=== PATIENT | female | born 1995 | race Two or more races ===

== ENCOUNTER 2019-01-16 19:01 | Emergency (ER) | payer BC, OTHER ==
[~2019-01-16] VITALS: Ht 182.9 cm; Wt 56.7 kg
[2019-01-16 19:42] VITALS: BP 122/64
== END 2019-01-16 20:02 | disposition home or self-care (01) ==
LOC: ER 19:06
DX: S62.324A Displaced fracture of shaft of fourth metacarpal bone, right hand, initial encounter for closed fracture (principal); W22.8XXA Striking against or struck by other objects, initial encounter; Y93.89 Activity, other specified; Y99.8 Other external cause status; Y92.89 Other specified places as the place of occurrence of the external cause
CPT/HCPCS: 29125

== ENCOUNTER 2025-02-15 12:49 | Observation (INO) | payer MEDICAID ==
[2025-02-15 13:42] LABS: Urine Bacteria None Seen /hpf (None Seen)
[2025-02-15 13:49] LABS: Urine Blood Negative /uL (Negative); Urine Clarity Turbid (Clear); Urine Color Colorless (Yellow); Urine Protein, UAD Negative (Negative); Urine Specific Gravity 1.013 (1.001-1.035); Urine Squamous Epithelial Cell MOD /hpf (<5); Urine Urobilinogen Normal (Negative); Urine WBC 6 /HPF (0-5); Urine pH 6.5 (5.0-9.0)
[2025-02-15 13:52] LABS: Protein, Urine 9.9 mg/dL (1-14)
[2025-02-15 13:55] LABS: Urine Protein/Creatinine Ratio 0.15
--- NOTE | 2025-02-15 13:56 | DVH ---
CLINICAL HISTORY: -induced hypertension. COMPARISON: None TECHNIQUE: biophysical profile was performed. Transabdominal sonographic images of the fetus we re obtained. FINDINGS: The fetus is in cephalic position. heart rate measures 140 BPM. Amniotic fluid index measures 12.2 cm. The placenta is fundal in position. BPP profile is an overall score of 8/8, with 2/2 points for breathing, with at least one episode of breathing over a 30 second duration during a 30 minute observation, 2/2 points for m ovements, with 3 or more discrete body or limb movements, 2/2 points for tone, with one or more episodes of extremity extension with return to flexion, or opening and closing of hand, and 2/ 2 points for amniotic fluid, with at least 1 pocket of amniotic fluid that measures 2 cm in 2 perpend icular planes. IMPRESSION: BPP score of 8/8.
[2025-02-15 14:11] LABS: Basophils # (auto) 0 10 ^3/uL (0-0.2); Basophils % (auto) 0.3 % (0.0-2.0); Eosinophils # (auto) 0.1 10 ^3/uL (0-0.8); Hematocrit 36.2 % (36.0-46.0); Hemoglobin 12.4 g/dL (12.2-16.2); Lymphocytes # (auto) 0.9 10 ^3/uL (0.4-5.4); Lymphocytes % (auto) 15.2 % (10.0-50.0); Mean Corpuscular Hemoglobin 32.6 pg (28.0-32.0); Mean Corpuscular Hgb Conc. 34.2 g/dL (32.0-36.0); Mean Corpuscular Volume 95.3 fL (80.0-100.0); Monocytes # (auto) 0.4 10 ^3/uL (0-1.3); Monocytes % (auto) 7.7 % (0.0-12.0); Neutrophils # (auto) 4.4 10 ^3/uL (1.6-8.6); Neutrophils % (auto) 75.8 % (37.0-80.0); Nucleated Red Blood Cells % 0.1 %; Platelet Count (auto) 199 10^3/uL (140-450); Red Cell Distribution Width 12.8 % (11.8-14.3); White Blood Cell 5.8 10^3/uL (4.4-10.8)
[2025-02-15 14:29] LABS: INR 0.9 (0.9-1.15); Partial Thromboplastin Time 26.3 SEC (24.5-34.5); Prothrombin Time 9.6 sec (9.3-11.8)
[2025-02-15 14:33] LABS: Alanine Aminotransferase 13 U/L (7-40); Anion Gap 8 (5-15); Aspartate Aminotransferase 16 U/L (13-40); BUN/Creatinine Ratio 14.7 (10.0-20.0); Blood Urea Nitrogen 10 mg/dL (9-23); Calcium 9.4 mg/dL (8.7-10.4); Carbon Dioxide 23 mmol/L (20-31); Glucose 97 mg/dL (74-106); Potassium 4.1 mmol/L (3.5-5.1); Sodium 138 mmol/L (136-145); Uric Acid 5.7 mg/dL (3.1-7.8)
[2025-02-15 14:34] LABS: Albumin 3.3 g/dL (3.2-4.8); Alkaline Phosphatase 122 U/L (46-116); Bilirubin, Total 0.3 mg/dL (0.2-1.0); Chloride 107 mmol/L (98-107); Total Protein 5.6 g/dL (5.7-8.2)
--- NOTE | 2025-02-15 23:18 | DVHDS2 ---
Discharge Summary Date of Admission Feb 15, 2025 at 12:49 Date of Discharge: Feb 15, 2025 Admitting Diagnosis Thirty-seven week hypertension Labs/Diagnostic Data: Laboratory Results Test 02/15/25 13:57 02/15/25 13:19 White Blood Count 5.8 10^3/uL (4.4-10.8) Red Blood Count 3.80 10^6/uL (4.0-5.20) Hemoglobin 12.4 g/dL (12.2-16.2) Hematocrit 36.2 % (36.0-46.0) Mean Corpuscular Volume 95.3 fL (80.0-100.0) Mean Corpuscular Hemoglobin 32.6 pg (28.0-32.0) Mean Corpuscular Hemoglobin Concent 34.2 g/dL (32.0-36.0) Red Cell Distribution Width 12.8 % (11.8-14.3) Platelet Count 199 10^3/uL (140-450) Mean Platelet Volume 7.3 fL (6.9-10.8) Neutrophils (%) (Auto) 75.8 % (37.0-80.0) Lymphocytes (%) (Auto) 15.2 % (10.0-50.0) Monocytes (%) (Auto) 7.7 % (0.0-12.0) Eosinophils (%) (Auto) 1.0 % (0.0-7.0) Basophils (%) (Auto) 0.3 % (0.0-2.0) Neutrophils # (Auto) 4.4 10 ^3/uL (1.6-8.6) Lymphocytes # (Auto) 0.9 10 ^3/uL (0.4-5.4) Monocytes # (Auto) 0.4 10 ^3/uL (0-1.3) Eosinophils # (Auto) 0.1 10 ^3/uL (0-0.8) Basophils # (Auto) 0 10 ^3/uL (0-0.2) Nucleated Red Blood Cells 0.1 % Prothrombin Time 9.6 sec (9.3-11.8) Prothrombin Time INR 0.90 (0.9-1.15) Activated Partial Thromboplast Time 26.3 SEC (24.5-34.5) Sodium Level 138 mmol/L (136-145) Potassium Level 4.1 mmol/L (3.5-5.1) Chloride Level 107 mmol/L (98-107) Carbon Dioxide Level 23 mmol/L (20-31) Anion Gap 8 (5-15) Blood Urea Nitrogen 10 mg/dL (9-23) Creatinine 0.68 mg/dL (0.550-1.02) Glomerular Filtration Rate Calc 121 mL/min (>90) BUN/Creatinine Ratio 14.7 (10.0-20.0) Serum Glucose 97 mg/dL (74-106) Uric Acid 5.7 mg/dL (3.1-7.8) Calcium Level 9.4 mg/dL (8.7-10.4) Total Bilirubin 0.3 mg/dL (0.2-1.0) Aspartate Amino Transferase (AST) 16 U/L (13-40) Alanine Aminotransferase (ALT) 13 U/L (7-40) Alkaline Phosphatase 122 U/L (46-116) Total Protein 5.6 g/dL (5.7-8.2) Albumin 3.3 g/dL (3.2-4.8) Urine Color Colorless (Yellow) Urine Clarity Turbid (Clear) Urine pH 6.5 (5.0-9.0) Urine Specific [place] 1.013 (1.001-1.035) Urine Protein Negative (Negative) Urine Ketones Negative (Negative) Urine Blood Negative /uL (Negative) Urine Nitrite Negative (Negative) Urine Bilirubin Negative (Negative) Urine Urobilinogen Normal mg/dL (Negative) Urine Leukocyte Esterase 2+ /uL (Negative) Urine RBC <1 /hpf (0 - 4) Urine Microscopic WBC 6 /HPF (0-5) Urine Squamous Epithelial Cells Mod /hpf (<5) Urine Bacteria None seen /hpf (None Seen) Urine Creatinine 64.00 mg/dL (30.0-125.0) Urine Protein/Creatinine Ratio 0.15 Urine Glucose Normal mg/dL (Normal) Urine Total Protein 9.9 mg/dL (1-14) Other Laboratory Tests 02/15/25 13:57 Brief Hx & Hospital Course: NST ultrasound blood pressure check Consults/Reason for consult NST ultrasound BP monitoring Condition at Discharge: Good Final Diagnosis/Problems List 37 week blood pressure checks Discharge Disposition: Home Discharge Instruct/Medications Diet: Regular Activity: No Restrictions, As Tolerated Activity comment: Kick counts labor Discharge Statement: "Patient was advised to return to the ER or call 911 if any headaches, dizziness, shortness of breath, chest pain, abdominal pain, bleeding, fevers, or worsening of medical condition. Patient was counseled about treatment plan, medications, possible side effects, patientverbalized understanding. All questions were answered to the best of my ability. This discharge took greater then 30 minutes in planning, reviewing documentation, counseling the patient, and discussing with other team members." ASSESSMENT ASSESSMENT Assessment Visit Coding OBGYN Date of Service: Feb 15, 2025 Billing Provider: JOSE AGUILAR DO AUTOMATION MECHANIC Common Visit Codes: 79507-OUH/OBS SAME DATE (LOW), 82347-ABG/OBS SAME DATE (MOD), 64343-KRF/OBS SAME DATE (HIGH) AUTOMATION MECHANIC Procedure Codes: 14726-45- NON-STRESS TEST JOSE AGUILAR DO Feb 15, 2025 23:18
== END 2025-02-15 14:59 | disposition home or self-care (01) ==
LOC: LDRP 12:49
PROVIDERS: ADMIT Obstetrics & Gynecology; ATTEND Obstetrics & Gynecology
DX: O13.3 Gestational [pregnancy-induced] hypertension without significant proteinuria, third trimester (principal); Z98.890 Other specified postprocedural states; Z79.899 Other long term (current) drug therapy; Z3A.37 37 weeks gestation of pregnancy
CPT/HCPCS: 36415; 59025; 76819; 80053; 81001; 81002; 82570; 84156; 84550; 85025; 85610; 85730; C1813; G0378

== ENCOUNTER 2025-02-25 14:54 | Inpatient (IN) | payer MEDICAID ==
[~2025-02-25] VITALS: Ht 182.9 cm; Wt 97.5 kg
--- NOTE | 2025-02-25 16:27 | DVH ---
BIOPHYSICAL PROFILE HISTORY: Term TECHNIQUE: Multiple transabdominal real-time grayscale sonographic images through the gravid uterus of the fetus with duplex Doppler color flow and M-mode spectral analysis FINDINGS: BIOPHYSICAL PROFILE: breathing score: 2 movement score: 2 tone score: 2 Quantitative MICHAEL score: 2 (MICHAEL: 10.3 Cm.) Total score: 8/8 The cervix obscured by head Single live fetus in cephalic presentation. heart rate 161 beats per minute. Fundal Grade 2 placenta without previa or abruption Single live fetus at 40 weeks 0 days Biophysical profile score 8/8 corresponding to an KEM of 02/25/2025. IMPRESSION: 1. Biophysical profile score: 8/8
[2025-02-25] MEDS ORDERED: PREN-96 PO (16:39)
[2025-02-25] MEDS ORDERED: LIDOCAINE 2%HCL (LOCAL ANESTH.) INJ 20ML MDV IJ PRN (17:30)
[2025-02-25] MEDS: LACTATED RINGER'S 1,000 ML IV SCH (17:33)
[2025-02-25 18:15] LABS: Basophils # (auto) 0 10 ^3/uL (0-0.2); Basophils % (auto) 0.2 % (0.0-2.0); Eosinophils # (auto) 0.1 10 ^3/uL (0-0.8); Eosinophils % (auto) 1.7 % (0.0-7.0); Hematocrit 35.8 % (36.0-46.0); Hemoglobin 12.3 g/dL (12.2-16.2); Lymphocytes # (auto) 1.3 10 ^3/uL (0.4-5.4); Lymphocytes % (auto) 21.5 % (10.0-50.0); Mean Corpuscular Hemoglobin 32.4 pg (28.0-32.0); Mean Corpuscular Hgb Conc. 34.3 g/dL (32.0-36.0); Mean Corpuscular Volume 94.5 fL (80.0-100.0); Monocytes # (auto) 0.5 10 ^3/uL (0-1.3); Monocytes % (auto) 8.7 % (0.0-12.0); Neutrophils # (auto) 4.2 10 ^3/uL (1.6-8.6); Neutrophils % (auto) 67.9 % (37.0-80.0); Platelet Count (auto) 206 10^3/uL (140-450); Red Blood Cells 3.78 10^6/uL (4.0-5.20); Red Cell Distribution Width 13.2 % (11.8-14.3); White Blood Cell 6.2 10^3/uL (4.4-10.8)
[2025-02-25 18:33] LABS: Alanine Aminotransferase 16 U/L (7-40); Albumin 3.7 g/dL (3.2-4.8); Anion Gap 9 (5-15); Aspartate Aminotransferase 18 U/L (13-40); BUN/Creatinine Ratio 16.7 (10.0-20.0); Blood Urea Nitrogen 12 mg/dL (9-23); Carbon Dioxide 21 mmol/L (20-31); Potassium 3.9 mmol/L (3.5-5.1); Sodium 138 mmol/L (136-145); Total Protein 6.2 g/dL (5.7-8.2)
[2025-02-25] MEDS: DERMOPLAST 60ML BOTTLE TOP PRN (18:33)
[2025-02-25] MEDS: WITCH HAZEL-GLYCERIN PAD TOP PRN (18:33)
[2025-02-25] MEDS: PHISODERM TOP SOLN 240ML BTL TOP PRN (18:33)
[2025-02-25 18:40] LABS: Urine Bacteria FEW /hpf (None Seen); Urine Blood Negative /uL (Negative); Urine Clarity Turbid (Clear); Urine Color Colorless (Yellow); Urine Protein, UAD Negative (Negative); Urine Specific Gravity 1.002 (1.001-1.035); Urine Squamous Epithelial Cell FEW /hpf (<5); Urine Urobilinogen Normal (Negative); Urine WBC 2 /HPF (0-5); Urine pH 6.5 (5.0-9.0)
[2025-02-25 18:42] LABS: Alkaline Phosphatase 148 U/L (46-116); Bilirubin, Total 0.3 mg/dL (0.2-1.0); Calcium 8.6 mg/dL (8.7-10.4); Chloride 108 mmol/L (98-107); Glucose 66 mg/dL (74-106)
[2025-02-25] MEDS: miSOPROStol 50 MCG per PRE-CUT 1/2 TAB PO PRN (18:43)
[2025-02-25 18:47] LABS: Creatinine, Urine 12.54 mg/dL (30.0-125.0); Protein, Urine < 6.0 mg/dL (1-14); Urine Protein/Creatinine Ratio 0.48
[2025-02-25 18:48] LABS: Amphetamine Screen, Urine Neg (NEGATIVE); Barbiturate Scree,Urine Neg (NEGATIVE); Benzodiazephine Screen, Urine Neg (NEGATIVE); Cannabinoid Screen, Urine Neg (NEGATIVE); Cocaine Screen, Urine Neg (NEGATIVE); Opiate Scree,Urine Neg (NEGATIVE); Phencyclidine Screen, Urine Neg (NEGATIVE)
[2025-02-25 18:55] LABS: INR 0.88 (0.9-1.15); Partial Thromboplastin Time 27.8 SEC (24.5-34.5); Prothrombin Time 9.4 sec (9.3-11.8)
[2025-02-25] MEDS ORDERED: hydrALAZINE HCL 20 MG/ML VL IV PRN (19:45)
[2025-02-25] MEDS ORDERED: ONDANSETRON HCL 4 MG/2 ML VIAL IV PRN (19:45)
--- NOTE | 2025-02-25 20:18 | DVHHP2 ---
OB CC & HPI Date Date of Admission: February 25, 2025 Patient Identification: : 2 Para: 0 EDC: February 25, 2025 EGA: 40w 0d Chief Complaints: Reason for admission: induction of labor, other (Presented to unit for surveillance, BP elevated and lab tests confirmed Pre-eclampsia hence the option plan to admit and induce labor discussed with patient.) Indication for induction: other (Pre-eclampsia) Other reason for admission: Pt presented to unit for surveillance, BP elevated and lab tests confirmed Pre-eclampsia hence the option plan to admit and induce labor discussed with patient. History of Present Complaints Presented to unit for surveillance, BP elevated. Patient denies any BOSS, vision changes or epigastric pain. Reports normal movements. Lab tests c onfirmed Pre-eclampsia hence the option plan to admit and induce labor discussed with patient. Past Medical History Cardiac: No pertinent Hx Pulmonary: No pertinent Hx Central Nervous System: No pertinent Hx GI: No pertinent Hx Hemotology/Oncology: No pertinent Hx Hepatobiliary: No pertinent Hx Psychiatric: No pertinent Hx Musculoskeletal: No pertinent Hx Rheumotologic: No pertinent Hx Infectious Disease: No peritnent Hx ENT: No pertinent Hx Renal/: No pertinent Hx Endocrine: No pertinent Hx Dermatology: No pertinent Hx Past Surgical History: Other (Orthopedic surgery on right hand due to fracture of the bone in 2018) OB History OB History Care: Good Care Ultrasounds: Normal mid trimester US Obstetrical Complications: Pre-eclampsia Allergies: Coded Allergies: NO KNOWN ALLERGIES (Unverified , 01/16/19) Home Meds Reported Medications Vit W/ Ferrous Fumara ( One Daily) Daily Tab, 1 TAB PO DAILY, #90 TAB 3 Refills 02/25/25 Current Medications Current Medications Medications (Trade) Dose Ordered Sig/Eve Route PRN Reason Start Time Stop Time Status Last Admin Lactated Ringer's 1,000 ml @ 125 mls/hr Q8H IV 02/25/25 17:30 02/25/25 17:33 Nalbuphine HCl (Nubain) 10 mg Q4HP PRN IV MODERATE PAIN (4-6 PAIN SCALE) 02/25/25 17:30 Witch Carol (Tucks) 1 pad PRN PRN TOP PERINEAL AREA DISCOMFORT 02/25/25 17:30 02/25/25 18:33 Sodium Lauryl Sulfate (Phisoderm) 240 ml PRN PRN TOP PERINEAL AREA DISCOMFORT 02/25/25 17:30 02/25/25 18:33 Benzocaine (Dermoplast) 1 applic PRN PRN TOP PERINEAL AREA DISCOMFORT 02/25/25 17:30 02/25/25 18:33 Misoprostol (Cytotec) 50 mcg Q4HPRN PRN PO CERVICAL RIPENING 02/25/25 17:30 02/25/25 18:43 Lidocaine HCl (Xylocaine) 40 ml ONCE PRN IJ PERINEAL AREA DISCOMFORT 02/25/25 17:30 Ondansetron HCl (Zofran) 4 mg Q6HPRN PRN IV NAUSEA / VOMITING 02/25/25 19:45 Hydralazine HCl (Apresoline Injection) 5 mg Q20MP PRN IV SBP>160 or DBP>95 02/25/25 19:45 Family & Social History Family/Social History Past Family/Social History: No pertinent family history Blood Type: B+ Rubella: immune RPR/VDRL: Negative GBS Status: Negative HBsAG: Negative Review of Systems Constitutional: No symptom reported Ears, Nose, & Throat: No symptom reported Eyes: No symptom reported Pulmonary/Respiratory: No symptom reported Cardiovascular: No symptom reported Gastrointestinal: No symptom reported Genitourinary: No symptom reported Musculoskeletal: No symptom reported Skin: No symptom reported Psychiatric: No symptom reported Endocrine: No symptom reported Hemotologic/Lymphatic: No symptom reported OB Admission Exam Physical Exam HEENT: Nasal Mucosa Normal, Eyes non-injected, Oropharynx Normal, Moist Membranes Heart: Rhythm Normal Lungs: Clear, Equal Abdomen: Gravid (and non-tender to palpation) Extremities: Normal Reflexes: Normal Cervical Dilatation: Fingertip Effacement: 25% Station: -3 Heart Rate: 130's Accelerations: Accelerations Present Decelerations: No Decelerations Halfway Variability: Average (6-25) Intensity: Mild OB Plan Plan Admitting Diagnosis: IUP at 40w Pre eclampsia Induction for Pre eclampsia Plan: Induction Induction Methd: Misoprostol protocol Other Plan: ASSESSMENT: 29yo G2, 0010, IUP at 40weeks Pre-eclampsia Induction of Labor FHR baseline 135bpm, mod variability , Accelerations present, no deceleration; Category 1 FHR tracing Contractions q mins x secs Irregular PLAN: P Plan of care discussed with Patient and partner / family IOL process, cervical ripening with medication, cervical ripening balloon, oxytocin etc including the risks, benefits and options discussed with the patient & partner. Informed consent obtained. Risk of pain, bleeding, infection, discussed with the patient and partner Consent for possible blood transfusion obtained. All questions answered. Admit to Place for IOL Routine L&D admission orders Misoprostol per protocol EFM per policy & protocol Intrauterine resuscitation PRN Labor analgesia PRN Encourage frequent position change to facilitate labor & descent Supportive Care Anticipate Visit Coding OBGYN Date of Service: February 25, 2025 Billing Provider: THEODORA MENARD CNM SWATCH CUTTER Common Visit Codes: [id number] INP/OBS CARE (HIGH) SWATCH CUTTER Procedure Codes: 94721-13- NON-STRESS TEST THEODORA MENARD CNM February 25, 2025 20:18
[2025-02-26] VITALS (12 sets, daily range): BP systolic 126–156; BP diastolic 75–95; PULSE 91–107; RESP 17–18; TEMP 98–100; O2SAT 96–98
--- NOTE | 2025-02-26 03:25 | DVHPN2 ---
OB Labor Progress Note Date and Time Seen Date Seen: February 26, 2025 Time Seen: 02:36 Subjective Patient reports: No new complaints Objective Vital Signs VSS Monitoring Method Monitoring Method: External Heart Rate Heart Rate Baseline: 125 Heart Rate Variability: Moderate Presence of FHR Accelerations: Yes Presence of FHR Decelerations: No Changes in Trends of Patterns: No Are all 5 Components of the FH: Yes Contractions Contractions Frequency: Other (Q3-5min) Duration of Contraction: 60 Contractions Intensity: Mild Contractions Resting Tone: Relaxed Membranes Membranes: Intact Vaginal Exam Vag Exam Deferred: No Vaginal Exam Dilation: 1 Vaginal Exam Effacement: 50 Vaginal Exam Station: -3 Vaginal Exam Presentation: VTX Vaginal Exam Show: Small Medications Medications - Pitocin: No Medication - Epidural: No Medication - Other Misoprostol dose #2 given at 2245 Lab Results Lab Results Vital Signs Date Time Temp Pulse Resp B/P (MAP) Pulse Ox O2 Delivery O2 Flow Rate FiO2 02/26/25 13:24 18 Room Air 02/26/25 05:31 69 129/73 Current Medications Medications (Trade) Dose Ordered Sig/Eve Start Time Stop Time Status Last Admin Dose Admin Lactated Ringer's 1,000 ml @ 125 mls/hr Q8H 02/25/25 17:30 02/26/25 07:00 125 MLS/HR Nalbuphine HCl (Nubain) 10 mg Q4HP PRN 02/25/25 17:30 02/26/25 04:31 10 MG Witch Carol (Tucks) 1 pad PRN PRN 02/25/25 17:30 02/25/25 18:33 1 PAD Sodium Lauryl Sulfate (Phisoderm) 240 ml PRN PRN 02/25/25 17:30 02/25/25 18:33 240 ML Benzocaine (Dermoplast) 1 applic PRN PRN 02/25/25 17:30 02/25/25 18:33 1 APPLIC Misoprostol (Cytotec) 50 mcg Q4HPRN PRN 02/25/25 17:30 02/26/25 04:40 50 MCG Lidocaine HCl (Xylocaine) 40 ml ONCE PRN 02/25/25 17:30 Oxytocin 500 ml @ 999 mls/hr Q31M ONCE 02/25/25 17:30 02/25/25 18:00 DC Oxytocin 500 ml @ 125 mls/hr Q4H ONCE 02/25/25 18:00 02/25/25 21:59 DC Ondansetron HCl (Zofran) 4 mg Q6HPRN PRN 02/25/25 19:45 Hydralazine HCl (Apresoline Injection) 5 mg Q20MP PRN 02/25/25 19:45 Terbutaline Sulfate (Brethine Inj) 0.25 mg ONCE PRN 02/26/25 03:30 Naloxone HCl (Narcan) 0.2 mg PRN ONCE 02/26/25 06:45 02/26/25 06:46 DC Ephedrine Sulfate (ePHEDrine SULFATE) 10 mg PRN ONCE 02/26/25 06:45 02/26/25 06:46 DC Magnesium Sulfate 1,000 ml @ 50 mls/hr Q20H 02/26/25 08:45 02/26/25 12:04 50 MLS/HR Magnesium Sulfate 100 ml @ 300 mls/hr ONCE ONCE 02/26/25 08:45 02/26/25 09:04 DC 02/26/25 12:04 300 MLS/HR Oxytocin 1,000 ml @ 6 ml/hr Q24H 02/26/25 10:00 02/26/25 13:02 6 ML/HR Cefazolin Sodium 50 ml @ 100 mls/hr Q8HR 02/26/25 12:30 02/26/25 14:19 DC 02/26/25 12:31 100 MLS/HR Lactated Ringer's 200 ml @ 0 mls/hr Q0M ONCE 02/26/25 12:15 02/26/25 12:23 DC 02/26/25 12:28 200 MLS/HR Sodium Chloride 1,000 ml @ 125 mls/hr Q8H 02/26/25 12:15 02/26/25 12:27 125 MLS/HR Lorazepam (Ativan Inj) 4 mg ONCE PRN 02/26/25 14:15 Cefazolin Sodium 50 ml @ 100 mls/hr Q8H 02/26/25 22:30 Laboratory Tests Test 02/25/25 20:02 02/25/25 17:52 02/25/25 15:54 Range/Units POC Glucose 102 70-106 mg/dl White Blood Count 6.2 4.4-10.8 10^3/uL Red Blood Count 3.78 L 4.0-5.20 10^6/uL Hemoglobin 12.3 12.2-16.2 g/dL Hematocrit 35.8 L 36.0-46.0 % Mean Corpuscular Volume 94.5 80.0-100.0 fL Mean Corpuscular Hemoglobin 32.4 H 28.0-32.0 pg Mean Corpuscular Hemoglobin Concent 34.3 32.0-36.0 g/dL Red Cell Distribution Width 13.2 11.8-14.3 % Platelet Count 206 140-450 10^3/uL Mean Platelet Volume 7.7 6.9-10.8 fL Neutrophils (%) (Auto) 67.9 37.0-80.0 % Lymphocytes (%) (Auto) 21.5 10.0-50.0 % Monocytes (%) (Auto) 8.7 0.0-12.0 % Eosinophils (%) (Auto) 1.7 0.0-7.0 % Basophils (%) (Auto) 0.2 0.0-2.0 % Neutrophils # (Auto) 4.2 1.6-8.6 10 ^3/uL Lymphocytes # (Auto) 1.3 0.4-5.4 10 ^3/uL Monocytes # (Auto) 0.5 0-1.3 10 ^3/uL Eosinophils # (Auto) 0.1 0-0.8 10 ^3/uL Basophils # (Auto) 0 0-0.2 10 ^3/uL Nucleated Red Blood Cells 0.0 % Prothrombin Time 9.4 9.3-11.8 sec Prothrombin Time INR 0.88 L 0.9-1.15 Activated Partial Thromboplast Time 27.8 24.5-34.5 SEC Sodium Level 138 136-145 mmol/L Potassium Level 3.9 3.5-5.1 mmol/L Chloride Level 108 H 98-107 mmol/L Carbon Dioxide Level 21 20-31 mmol/L Anion Gap 9 5-15 Blood Urea Nitrogen 12 9-23 mg/dL Creatinine 0.72 0.550-1.02 mg/dL Glomerular Filtration Rate Calc 116 >90 mL/min BUN/Creatinine Ratio 16.7 10.0-20.0 Serum Glucose 66 L 74-106 mg/dL Uric Acid 6.0 3.1-7.8 mg/dL Calcium Level 8.6 L 8.7-10.4 mg/dL Total Bilirubin 0.3 0.2-1.0 mg/dL Aspartate Amino Transferase (AST) 18 13-40 U/L Alanine Aminotransferase (ALT) 16 7-40 U/L Alkaline Phosphatase 148 H 46-116 U/L Total Protein 6.2 5.7-8.2 g/dL Albumin 3.7 3.2-4.8 g/dL Treponema pallidum Antibody Non-reactive Negative Hepatitis C Antibody Negative Negative Urine Color Colorless Yellow Urine Clarity Turbid H Clear Urine pH 6.5 5.0-9.0 Urine Specific [place] 1.002 1.001-1.035 Urine Protein Negative Negative Urine Ketones Negative Negative Urine Blood Negative Negative /uL Urine Nitrite Negative Negative Urine Bilirubin Negative Negative Urine Urobilinogen Normal Negative mg/dL Urine Leukocyte Esterase 1+ Negative /uL Urine RBC 2 0 - 4 /hpf Urine Microscopic WBC 2 0-5 /HPF Urine Squamous Epithelial Cells Few <5 /hpf Urine Bacteria Few H None Seen /hpf Urine Creatinine 12.54 L 30.0-125.0 mg/dL Urine Protein/Creatinine Ratio 0.48 Urine Glucose Normal Normal mg/dL Urine Total Protein < 6.0 1-14 mg/dL Urine Opiates Screen Neg NEGATIVE Urine Fentanyl Screen Neg NEGATIVE Urine Barbiturates Screen Neg NEGATIVE Urine Phencyclidine Screen Neg NEGATIVE Urine Amphetamines Screen Neg NEGATIVE Urine Benzodiazepines Screen Neg NEGATIVE Urine Cocaine Screen Neg NEGATIVE Urine Cannabinoids Screen Neg NEGATIVE Assessment Assessment IUP at 40w 2d Pre-eclampsia IOL Category 1 FHR tracing Plan Plan Cervical Ripening balloon (Abdalla) inserted; balloon inflated with 60mL of fluid. Continue Misoprostol per policy EFM per policy Intrauterine resuscitation PRN Labor analgesia PRN Frequent position change to facilitate lanor Anticipate (Co-managing with Dr. Choi) Plan discussed with: Patient Visit Coding OBGYN Date of Service: February 26, 2025 Billing Provider: THEODORA MENARD CNM SANDFILL OPERATOR Common Visit Codes: [id number] INP/OBS CARE(HIGH) SANDFILL OPERATOR Procedure Codes: 26811-24- NON-STRESS TEST THEODORA MENARD CNM February 26, 2025 03:25
[2025-02-26] MEDS ORDERED: TERBUTALINE SULFATE 1 MG/ML 1ML VIAL SC PRN (03:30)
[2025-02-26] MEDS: NALBUPHINE HCL 10 MG/1ml INJECTION IV PRN (04:31)
[2025-02-26] MEDS: ePHEDrine SULFATE 50 MG/ML AMP IV ONE (06:45)
[2025-02-26] MEDS: ROPIVACAINE HCL 200 ML ONE (07:02)
[2025-02-26] MEDS: NALOXONE HCL 0.4 MG/ML VIAL IV ONE (07:04)
--- NOTE | 2025-02-26 07:16 | DVHPN2 ---
Chief Complaints Patient reports: No new complaints Nursing reports: No new complaints Objective Vitals Vital Signs Date Time Temp Pulse Resp B/P (MAP) Pulse Ox O2 Delivery O2 Flow Rate FiO2 02/26/25 05:31 69 16 129/73 Medications Current Medications Medications (Trade) Dose Ordered Sig/Eve Route PRN Reason Start Time Stop Time Status Last Admin Benzocaine (Dermoplast) 1 applic PRN PRN TOP PERINEAL AREA DISCOMFORT 02/25/25 17:30 02/25/25 18:33 Hydralazine HCl (Apresoline Injection) 5 mg Q20MP PRN IV SBP>160 or DBP>95 02/25/25 19:45 Lactated Ringer's 1,000 ml @ 125 mls/hr Q8H IV 02/25/25 17:30 02/26/25 07:00 Lidocaine HCl (Xylocaine) 40 ml ONCE PRN IJ PERINEAL AREA DISCOMFORT 02/25/25 17:30 Misoprostol (Cytotec) 50 mcg Q4HPRN PRN PO CERVICAL RIPENING 02/25/25 17:30 02/26/25 04:40 Nalbuphine HCl (Nubain) 10 mg Q4HP PRN IV MODERATE PAIN (4-6 PAIN SCALE) 02/25/25 17:30 02/26/25 04:31 Ondansetron HCl (Zofran) 4 mg Q6HPRN PRN IV NAUSEA / VOMITING 02/25/25 19:45 Sodium Lauryl Sulfate (Phisoderm) 240 ml PRN PRN TOP PERINEAL AREA DISCOMFORT 02/25/25 17:30 02/25/25 18:33 Terbutaline Sulfate (Brethine Inj) 0.25 mg ONCE PRN SC Uterine tachysystole 02/26/25 03:30 Witch Carol (Tucks) 1 pad PRN PRN TOP PERINEAL AREA DISCOMFORT 02/25/25 17:30 02/25/25 18:33 General: Normal Lungs: Normal Cardiovascular: Normal Abdominal: Soft Extremities: Normal Studies Laboratory Tests 02/25/25 17:52 Test 02/25/25 17:52 Range/Units Serum Glucose 66 L 74-106 mg/dL Ass/Plan Assessment induction of labor for pih Plan rec epidural supportive care Visit Coding OBGYN Date of Service: February 26, 2025 Billing Provider: BETY ROBINS DO MENTAL HEALTH TECH Common Visit Codes: [id number] INP/OBS CARE(HIGH), 96585-VKB/OBS DISCH DAY <30MIN MENTAL HEALTH TECH Procedure Codes: 69076-19- NON-STRESS TEST BETY ROBINS DO February 26, 2025 07:16
--- NOTE | 2025-02-26 08:22 | DVHPN2 ---
Chief Complaints Patient reports: No new complaints Nursing reports: No new complaints Objective Vitals Vital Signs Date Time Temp Pulse Resp B/P (MAP) Pulse Ox O2 Delivery O2 Flow Rate FiO2 02/26/25 05:31 69 16 129/73 Medications Current Medications Medications (Trade) Dose Ordered Sig/Eve Route PRN Reason Start Time Stop Time Status Last Admin Benzocaine (Dermoplast) 1 applic PRN PRN TOP PERINEAL AREA DISCOMFORT 02/25/25 17:30 02/25/25 18:33 Hydralazine HCl (Apresoline Injection) 5 mg Q20MP PRN IV SBP>160 or DBP>95 02/25/25 19:45 Lactated Ringer's 1,000 ml @ 125 mls/hr Q8H IV 02/25/25 17:30 02/26/25 07:00 Lidocaine HCl (Xylocaine) 40 ml ONCE PRN IJ PERINEAL AREA DISCOMFORT 02/25/25 17:30 Misoprostol (Cytotec) 50 mcg Q4HPRN PRN PO CERVICAL RIPENING 02/25/25 17:30 02/26/25 04:40 Nalbuphine HCl (Nubain) 10 mg Q4HP PRN IV MODERATE PAIN (4-6 PAIN SCALE) 02/25/25 17:30 02/26/25 04:31 Ondansetron HCl (Zofran) 4 mg Q6HPRN PRN IV NAUSEA / VOMITING 02/25/25 19:45 Sodium Lauryl Sulfate (Phisoderm) 240 ml PRN PRN TOP PERINEAL AREA DISCOMFORT 02/25/25 17:30 02/25/25 18:33 Terbutaline Sulfate (Brethine Inj) 0.25 mg ONCE PRN SC Uterine tachysystole 02/26/25 03:30 Witch Carol (Tucks) 1 pad PRN PRN TOP PERINEAL AREA DISCOMFORT 02/25/25 17:30 02/25/25 18:33 General: Normal Lungs: Normal Cardiovascular: Normal Abdominal: Soft Extremities: Normal Others ve -5cm/80/-2 Studies Laboratory Tests 02/25/25 17:52 Test 02/25/25 17:52 Range/Units Serum Glucose 66 L 74-106 mg/dL Ass/Plan Assessment induction of labor for pih Plan davies out start pitocin Visit Coding OBGYN Date of Service: February 26, 2025 Billing Provider: BETY ROBINS DO BURN OUT TENDER LACE Common Visit Codes: [id number] INP/OBS CARE(HIGH) B[employer] OUT TENDER LACE Procedure Codes: 86523-70- NON-STRESS TEST BETY ROBINS DO February 26, 2025 08:22
[2025-02-26] MEDS: MAGNESIUM SULFATE 100 ML IV ONE (12:04)
[2025-02-26] MEDS: MAGNESIUM SULFATE 40MG/ML 1,000 ML IV SCH (12:04)
--- NOTE | 2025-02-26 12:20 | DVHPN2 ---
Chief Complaints Patient reports: No new complaints Nursing reports: No new complaints Objective Vitals Vital Signs Date Time Temp Pulse Resp B/P (MAP) Pulse Ox O2 Delivery O2 Flow Rate FiO2 02/26/25 05:31 69 16 129/73 Medications Current Medications Medications (Trade) Dose Ordered Sig/Eve Route PRN Reason Start Time Stop Time Status Last Admin Benzocaine (Dermoplast) 1 applic PRN PRN TOP PERINEAL AREA DISCOMFORT 02/25/25 17:30 02/25/25 18:33 Cefazolin Sodium 50 ml @ 100 mls/hr Q8HR IV 02/26/25 12:30 UNV Hydralazine HCl (Apresoline Injection) 5 mg Q20MP PRN IV SBP>160 or DBP>95 02/25/25 19:45 Lactated Ringer's 1,000 ml @ 125 mls/hr Q8H IV 02/25/25 17:30 02/26/25 07:00 Lidocaine HCl (Xylocaine) 40 ml ONCE PRN IJ PERINEAL AREA DISCOMFORT 02/25/25 17:30 Magnesium Sulfate 1,000 ml @ 50 mls/hr Q20H IV 02/26/25 08:45 02/26/25 12:04 Misoprostol (Cytotec) 50 mcg Q4HPRN PRN PO CERVICAL RIPENING 02/25/25 17:30 02/26/25 04:40 Nalbuphine HCl (Nubain) 10 mg Q4HP PRN IV MODERATE PAIN (4-6 PAIN SCALE) 02/25/25 17:30 02/26/25 04:31 Ondansetron HCl (Zofran) 4 mg Q6HPRN PRN IV NAUSEA / VOMITING 02/25/25 19:45 Oxytocin 1,000 ml @ 6 ml/hr Q24H IV 02/26/25 10:00 Sodium Chloride 1,000 ml @ 125 mls/hr Q8H IUPC 02/26/25 12:15 UNV Sodium Lauryl Sulfate (Phisoderm) 240 ml PRN PRN TOP PERINEAL AREA DISCOMFORT 02/25/25 17:30 02/25/25 18:33 Terbutaline Sulfate (Brethine Inj) 0.25 mg ONCE PRN SC Uterine tachysystole 02/26/25 03:30 Witch Carol (Tucks) 1 pad PRN PRN TOP PERINEAL AREA DISCOMFORT 02/25/25 17:30 02/25/25 18:33 General: Normal Lungs: Normal Cardiovascular: Normal Abdominal: Soft Extremities: Normal Others ve-9.5cm/100/-1 Studies Laboratory Tests 02/25/25 17:52 Test 02/25/25 17:52 Range/Units Serum Glucose 66 L 74-106 mg/dL Ass/Plan Assessment induction of labor for pih active labor Plan start amnioinfusion start mg Visit Coding OBGYN Date of Service: February 26, 2025 Billing Provider: BETY ROBINS DO FISH PITCHER Common Visit Codes: [id number] INP/OBS CARE(HIGH) FISH PITCHER Procedure Codes: 06270-36- NON-STRESS TEST BETY ROBINS DO February 26, 2025 12:20
[2025-02-26] MEDS: SODIUM CHLORIDE 0.9% 1,000 ML IUPC SCH (12:27)
[2025-02-26] MEDS: LACTATED RINGER'S 200 ML IUPC ONE (12:28)
[2025-02-26] MEDS: ceFAZolin 1GM/50ML 50 ML IV SCH ×2 (12:31→20:40)
[2025-02-26] MEDS: LACT. RINGERS/OXYTOCIN 20UNITS 1,000 ML IV SCH (13:02)
[2025-02-26] MEDS ORDERED: LORazepam 2MG/ML-1ML VIAL IV PRN (14:15)
--- NOTE | 2025-02-26 15:04 | DVHPN2 ---
Chief Complaints Patient reports: No new complaints Nursing reports: No new complaints Objective Vitals Vital Signs Date Time Temp Pulse Resp B/P (MAP) Pulse Ox O2 Delivery O2 Flow Rate FiO2 02/26/25 13:24 18 Room Air 02/26/25 05:31 69 129/73 Medications Current Medications Medications (Trade) Dose Ordered Sig/Eve Route PRN Reason Start Time Stop Time Status Last Admin Benzocaine (Dermoplast) 1 applic PRN PRN TOP PERINEAL AREA DISCOMFORT 02/25/25 17:30 02/25/25 18:33 Cefazolin Sodium 50 ml @ 100 mls/hr Q8H IV 02/26/25 22:30 Hydralazine HCl (Apresoline Injection) 5 mg Q20MP PRN IV SBP>160 or DBP>95 02/25/25 19:45 Lactated Ringer's 1,000 ml @ 125 mls/hr Q8H IV 02/25/25 17:30 02/26/25 07:00 Lidocaine HCl (Xylocaine) 40 ml ONCE PRN IJ PERINEAL AREA DISCOMFORT 02/25/25 17:30 Lorazepam (Ativan Inj) 4 mg ONCE PRN IV SEIZURES 02/26/25 14:15 Magnesium Sulfate 1,000 ml @ 50 mls/hr Q20H IV 02/26/25 08:45 02/26/25 12:04 Misoprostol (Cytotec) 50 mcg Q4HPRN PRN PO CERVICAL RIPENING 02/25/25 17:30 02/26/25 04:40 Nalbuphine HCl (Nubain) 10 mg Q4HP PRN IV MODERATE PAIN (4-6 PAIN SCALE) 02/25/25 17:30 02/26/25 04:31 Ondansetron HCl (Zofran) 4 mg Q6HPRN PRN IV NAUSEA / VOMITING 02/25/25 19:45 Oxytocin 1,000 ml @ 6 ml/hr Q24H IV 02/26/25 10:00 02/26/25 13:02 Sodium Chloride 1,000 ml @ 125 mls/hr Q8H IUPC 02/26/25 12:15 02/26/25 12:27 Sodium Lauryl Sulfate (Phisoderm) 240 ml PRN PRN TOP PERINEAL AREA DISCOMFORT 02/25/25 17:30 02/25/25 18:33 Terbutaline Sulfate (Brethine Inj) 0.25 mg ONCE PRN SC Uterine tachysystole 02/26/25 03:30 Witch Carol (Tucks) 1 pad PRN PRN TOP PERINEAL AREA DISCOMFORT 02/25/25 17:30 02/25/25 18:33 General: Normal Lungs: Normal Cardiovascular: Normal Abdominal: Soft Extremities: Normal Others VE-SMALL ANT LIP Studies Laboratory Tests 02/25/25 17:52 Test 02/25/25 17:52 Range/Units Serum Glucose 66 L 74-106 mg/dL Ass/Plan Assessment induction of labor for pih active labor Plan CONT WITH PITOCIN AMNIO STOPPED DUE TO NO RETURN Visit Coding OBGYN Date of Service: February 26, 2025 Billing Provider: BETY ROBINS DO MILANESE KNITTING MACHINE OPERATOR Common Visit Codes: 45869-[id number] OBS CARE (HIGH) MILANESE KNITTING MACHINE OPERATOR Procedure Codes: 57963-88- NON-STRESS TEST BETY ROBINS DO February 26, 2025 15:04
--- NOTE | 2025-02-26 16:15 | LDN2 ---
Labor and Delivery Note Date 02/26/25 Age 29 2 Para 1 EDC 5-8 EGA 40wks Diagnosis induction of labor for pih Vaginal Delivery: VTX Vacuum Assisted: No Placenta: Spontaneous Sex: Female Apgars 8-9 Nuchal Cord Transected: Yes Amniotic Fluid: Clear Anesthesia epidural Episiotomy: No Extension: Yes (2nd deg perineal lac) Repaired with 2-0 chromic EBL 300ml Labs Blood Bank 02/25/25 17:52: Blood Type B POSITIVE Complications none Conditions stablle Comments/Significant Med Henrik spec exam no cxal lac Visit Coding OBGYN Date of Service: February 26, 2025 Billing Provider: BETY ROBINS DO CURATOR HERBARIUM Common Visit Codes: 57407-AOA/OBS SAME DATE (HIGH) CURATOR HERBARIUM Procedure Codes: 07455-EYG DELIVERY ONLY BETY ROBINS DO February 26, 2025 16:15
[2025-02-26] MEDS: LACT. RINGERS/OXYTOCIN 20UNITS 500 ML IV ONE ×2 (16:30→16:31)
[2025-02-26] MEDS ORDERED: ACETAMINOPHEN 500 MG TAB or CAP PO PRN (16:45)
[2025-02-26] MEDS ORDERED: IBUPROFEN 600 MG TAB PO PRN ×2 (16:45→17:45)
[2025-02-26] MEDS ORDERED: ACETAMINOPHEN 650 mg PER 20.3 mL UD GT ONE (17:00)
[2025-02-26] MEDS: IBUPROFEN 800 MG TAB PO PRN (18:05)
[2025-02-26] MEDS: ACETAMINOPHEN 325 MG TAB PO ONE (18:06)
[2025-02-26] MEDS ORDERED: miSOPROStol 100 mcg TAB PO ONE (18:44)
[2025-02-27] VITALS (7 sets, daily range): BP systolic 116–146; BP diastolic 73–87; PULSE 78–88; RESP 15–18; TEMP 98.3–99.4; O2SAT 98–99
[2025-02-27] MEDS: ACETAMINOPHEN 325 MG TAB PO PRN (02:05)
--- NOTE | 2025-02-27 07:49 | DVHPN2 ---
Progress Note Date Seen: February 27, 2025 Subjective S: Lochia minimal Tolerating regular diet well. Ambulating and voiding well w/o feeling lightheaded or dizzy. Passing flatus but no BM yet. Breast feeding. Contraceptive plan: undecided vital signs Vital Sign Date Time Temp Pulse Resp B/P (MAP) Pulse Ox O2 Delivery O2 Flow Rate FiO2 02/27/25 04:00 98.4 85 16 135/77 (96) 99 98.4 02/26/25 13:24 Room Air Total Intake and Output 02/26/25 02/26/25 02/27/25 15:00 23:00 07:00 Output Total 600 ml 800 ml Balance -600 ml -800 ml medications Current Medications Medications Dose Ordered Sig/Eve Route Start Time Stop Time Status Last Admin Dose Admin Lactated Ringer's 1,000 ml @ 125 mls/hr Q8H IV 02/25/25 17:30 02/26/25 07:00 125 MLS/HR Chary Medina 1 pad PRN PRN TOP 02/25/25 17:30 02/25/25 18:33 1 PAD Sodium Lauryl Sulfate 240 ml PRN PRN TOP 02/25/25 17:30 02/25/25 18:33 240 ML Benzocaine 1 applic PRN PRN TOP 02/25/25 17:30 02/25/25 18:33 1 APPLIC Misoprostol 50 mcg Q4HPRN PRN PO 02/25/25 17:30 02/26/25 04:40 50 MCG Lidocaine HCl 40 ml ONCE PRN IJ 02/25/25 17:30 Ondansetron HCl 4 mg Q6HPRN PRN IV 02/25/25 19:45 Hydralazine HCl 5 mg Q20MP PRN IV 02/25/25 19:45 Terbutaline Sulfate 0.25 mg ONCE PRN SC 02/26/25 03:30 Magnesium Sulfate 1,000 ml @ 50 mls/hr Q20H IV 02/26/25 08:45 02/26/25 12:04 50 MLS/HR Lorazepam 4 mg ONCE PRN IV 02/26/25 14:15 Cefazolin Sodium 50 ml @ 100 mls/hr Q8H IV 02/26/25 22:30 02/27/25 04:37 100 MLS/HR Ibuprofen 600 mg Q6HP PRN PO 02/26/25 16:45 Cancel Acetaminophen 650 mg Q4HP PRN PO 02/26/25 16:45 02/27/25 02:05 650 MG Ibuprofen 800 mg Q8HP PRN PO 02/26/25 18:00 02/26/25 22:23 800 MG laboratory and microbiology Laboratory Tests 02/25/25 17:52 Test 02/25/25 17:52 Range/Units Serum Glucose 66 L 74-106 mg/dL Objective O: A&O x3 NAD. Afebrile, VSS Chest: heart and lung sounds normal. Breasts: Nipples intact w/o cracks or soreness Abdomen: normal BS, soft, non-tender, no rebound or guarding, fundus firm @ U- 1, lochia minimal Perineum:- no edema, or erythema, Incision site with sutures intact, edges in good approximation. Extremities: no edema or tenderness Lochia - minimal Assessment/Plan A/P 29 yo now ppd#1 s/p doing well. Blood Type: B Rh: Positive Breast feeding and Formula feeding Rubella Immune Pain control with oral medications Bowel regimen: Increase fluid intake and fiber in diet, Laxative PRN PP BCM Plan: undecided Plan discussed with: Patient Visit Coding OBGYN Date of Service: February 27, 2025 Billing Provider: THEODORA MENARD CNM VALVE PIPE IRRIGATOR Common Visit Codes: [id number] INP/OBS CARE(HIGH) THEODORA MENARD CNM February 27, 2025 07:49
[2025-02-27] MEDS ORDERED: CEPH250C PO (14:46)
--- NOTE | 2025-02-27 17:31 | DVHPN2 ---
Chief Complaints Patient reports: No new complaints Nursing reports: No new complaints Objective Vitals Vital Signs Date Time Temp Pulse Resp B/P (MAP) Pulse Ox O2 Delivery O2 Flow Rate FiO2 02/27/25 15:30 98.6 78 15 146/77 (100) 99 98.6 02/27/25 07:05 Room Air Medications Current Medications Medications (Trade) Dose Ordered Sig/Eve Route PRN Reason Start Time Stop Time Status Last Admin Ibuprofen (Motrin Tablet) 800 mg Q8HP PRN PO MILD PAIN (1-3 PAIN SCALE) 02/26/25 18:00 02/27/25 17:27 General: Normal Lungs: Normal Cardiovascular: Normal Abdominal: Soft Extremities: Normal Studies Laboratory Tests 02/25/25 17:52 Test 02/25/25 17:52 Range/Units Serum Glucose 66 L 74-106 mg/dL Ass/Plan Assessment S/P Plan DC HOME FU THIS SATURDAY Visit Coding OBGYN Date of Service: February 27, 2025 Billing Provider: BETY ROBINS DO BUSINESS MACHINES TEACHER Common Visit Codes: 74881-SLM/OBS DISCH DAY >30MIN BETY ROBINS DO February 27, 2025 17:31
--- NOTE | 2025-02-27 17:32 | DVHDS2 ---
Obstetrics Discharge Summary Obstetrics Discharge Summary Date of Admission: February 25, 2025 Date of Discharge: February 27, 2025 Reason For Admission: Induction of Labor Procedures: NST Intrapartum Procedures: Spontaneous vaginal deliv Procedures: None Operative Complicat: Laceration (Perineal) Discharge Diagnosis: Term -Delivered Discharge Information: Activity (Other), Diet (Routine), Medications, Instructions (Routine), Discharge to (Home), Discarge date (-) Visit Coding OBGYN Date of Service: February 27, 2025 Billing Provider: BETY ROBINS DO ENGINEERING SYSTEMS ANALYST Common Visit Codes: 98999-KFY/OBS DISCH DAY >30MIN BETY ROBINS DO February 27, 2025 17:32
== END 2025-02-27 20:45 | disposition home or self-care (01) | DRG 560 ==
LOC: LDRP 14:54 → UNDOADMOB 14:54 → LDRP 15:06 → OBSVTOIN 17:00 → LDRP 17:08
PROVIDERS: ADMIT Obstetrics & Gynecology; ATTEND Obstetrics & Gynecology
PROC: 10E0XZZ Delivery of Products of Conception, External Approach (ICD-10-PCS; principal; 2025-02-26)
PROC: 0KQM0ZZ Repair Perineum Muscle, Open Approach (ICD-10-PCS; 2025-02-26)
PROC: 3E033VJ Introduction of Other Hormone into Peripheral Vein, Percutaneous Approach (ICD-10-PCS; 2025-02-26)
PROC: 3E0DXGC Introduction of Other Therapeutic Substance into Mouth and Pharynx, External Approach (ICD-10-PCS; 2025-02-26)
DX: O14.94 Unspecified pre-eclampsia, complicating childbirth (principal); Z37.0 Single live birth; O69.81X0 Labor and delivery complicated by cord around neck, without compression, not applicable or unspecified; O70.1 Second degree perineal laceration during delivery; Z3A.40 40 weeks gestation of pregnancy
CPT/HCPCS: 36415; 59025; 59200; 62282; 76819; 80053; 80307; 81001; 81002; 82570; 82948; 82962; 83735; 84156; 84550; 85025; 85610; 85730; 86780; 86803; 86850; 86900; 86901; 94760; 94762; 96360; 96361; 96374; A4344; G0378; J2590